=== PATIENT | male | born 1950 | race Caucasian/White ===

== ENCOUNTER 2017-01-07 13:39 | Outpatient (CLI) | payer MEDICARE, BC | END 2017-01-07 13:40 | disposition home or self-care (01) | DX: J98.11 Atelectasis (principal) ==

== ENCOUNTER 2018-01-08 08:33 | Outpatient (CLI) | payer MEDICARE, BC ==
--- NOTE | 2018-01-08 13:55 | XRAY Report ---
THREE VIEW PARANASAL SINUSES: 01/08/2018 CLINICAL INDICATION: Dental implant, sinus pain. TECHNIQUE REPORT: AP, [place] and lateral views of the paranasal sinuses demonstrate leftward deviation of the septum. No mucosal thickening or air fluid level is seen. Dental hardware is noted. IMPRESSION: LEFTWARD DEVIATION OF THE NASAL SEPTUM. NO EVIDENCE OF ACUTE OR CHRONIC SINUSITIS. TD: 01/08/2018 13:54
== END 2018-01-08 08:34 | disposition home or self-care (01) ==
LOC: DI.S 08:33
PROVIDERS: ATTEND Internal Medicine
DX: J34.2 Deviated nasal septum (principal)
CPT/HCPCS: 70220

== ENCOUNTER 2018-09-14 20:38 | Outpatient (CLI) | payer MEDICARE, BC ==
--- NOTE | 2018-09-14 21:56 | Ultrasound Report ---
Reason: VARICOSE VEINS OF R LOW EXTREM WITH OTHER COMPLICA Procedure Date: 09/14/2018 Accession Number: [id number] / [id number] Procedure: US - Duplex Ext Veins Right CPT Code: FULL RESULT: EXAM: RIGHT LOWER EXTREMITY VENOUS ULTRASOUND EXAM DATE: 09/14/2018 08:50 PM. CLINICAL HISTORY: Varicose veins. Concern for DVT. COMPARISON: None. TECHNIQUE: Real-time sonographic vascular imaging was performed by the roof technician through the lower extremity utilizing both color-flow and Doppler spectral analysis. Multiple sales support representative static images were saved for review. FINDINGS: Common Femoral Vein (CFV): Normal. CFV-GSV Junction: Normal. Profunda Femoral Vein (PFV): Normal. Femoral Vein (FV) Prox: Normal. Femoral Vein (FV) Mid: Normal. Femoral Vein (FV) Dist: Normal. Popliteal Vein: Normal. Posterior Tibial Veins: Normal. Peroneal Veins: Normal. Other: Fluid noted at the knee compatible with joint effusion, up to 6.1 cm across and 1.1 cm thick. IMPRESSION: 1. No evidence for deep venous thrombosis. 2. Joint effusion. [facility]
== END 2018-09-14 20:39 | disposition home or self-care (01) ==
LOC: DI 20:38
PROVIDERS: ATTEND Internal Medicine
DX: I83.891 Varicose veins of right lower extremity with other complications (principal); M25.461 Effusion, right knee

== ENCOUNTER 2018-10-17 16:50 | Outpatient (CLI) | payer MEDICARE, BC ==
--- NOTE | 2018-10-19 13:03 | MRI Report ---
Reason: EFFUSION,RIGHT KNEE Procedure Date: 10/17/2018 Accession Number: [id number] / [id number] Procedure: MRI - Knee RT W/O CPT Code: FULL RESULT: EXAM: RIGHT KNEE MRI WITHOUT CONTRAST EXAM DATE: 10/17/2018 06:14 PM. CLINICAL HISTORY: Effusion, right knee. COMPARISON: None. TECHNIQUE: Multiplanar, multisequence T1-weighted and fluid-sensitive sequences of the knee without contrast. Other: None. FINDINGS: Bones: Abnormal marrow edema is seen at the inferior patellar pole. There is a subtle line of low signal on T1 and T2 associated with focal region of abnormal swelling of the patellar tendon at the patellar tendon attachment to the lower pole. Series 401 image 25, series 501 image 20. Articular Cartilage: Broders grade IV chondromalacia on both sides of the medial compartment. Marginal arthrosis is also present. Lateral compartment cartilage is spared. Minimal marginal arthrosis is present. Patellofemoral joint shows only a small amount of marginal arthrosis at the inferior pole. Medial Meniscus: Medial meniscus shows a macerated tear with subluxation out of the joint, the posterior horn medial meniscus tear is near the meniscal root but does not involve this ligament. Medial meniscus is partially subluxed out of the joint. Bowing but otherwise intact normal appearing MCL medially. Series 801 image 16. Lateral Meniscus: The lateral meniscus is intact. Cruciate Ligaments: The anterior and posterior cruciate ligaments are intact. Collateral Ligaments: The medial collateral and lateral collateral ligamentous structures are intact. MCL somewhat laterally bowed. Otherwise unremarkable. Tendons: On the sagittal, there is abnormal swelling, edema and abnormal signal within the proximal patellar tendon near the patellar attachment. This is probably a small focal intrasubstance or partial-thickness tear of the central aspect. Because of this patient's history this may be related to a chronic repetitive stress-type injury with a focal tendon tear at the patellar attachment. Series 401 image 25, series 501 image 21. Semimembranosus, biceps femoris have a normal appearance. Musculature: No edema or fatty atrophy. Other: Moderate-sized joint effusion. Multilocular popliteal cyst. At least one small loose body is seen in medial aspect of the knee. Series 401 image 20, series 801 image 25. The medial and lateral retinacula are intact. Extensive subcutaneous edema and swelling is seen anteriorly over the patella. Extensive edema also seen in Hoffa's fat pad. IMPRESSION: 1. On this examination, dominant features in the anterior knee, where there is extensive subcutaneous prepatellar soft tissue swelling, a focal tear at the central aspect of the patellar tendon attachment on the inferior patella, extensive bone marrow edema, small erosion at the inferior anterior patella and edema in Hoffa's fat pad. These are all probably related to chronic repetitive stress in a patient with a history of working on his knees. 2. There is also a macerated tear of the posterior horn of the medial meniscus. This causes lateral subluxation of the meniscus out of the joint, otherwise bowing intact and normal appearing MCL medially. Please note that the meniscal root does appear to be intact. 3. Lateral meniscus, cruciates, lateral collateral ligament appear unremarkable. [facility] MUSCULOSKELETAL RADIOLOGY SECTION
== END 2018-10-17 16:51 | disposition home or self-care (01) ==
LOC: DI 16:50
PROVIDERS: ATTEND Internal Medicine
DX: S76.111A Strain of right quadriceps muscle, fascia and tendon, initial encounter (principal); S83.241A Other tear of medial meniscus, current injury, right knee, initial encounter; M85.861 Other specified disorders of bone density and structure, right lower leg

== ENCOUNTER 2020-01-25 06:41 | Outpatient (CLI) | payer MEDICARE ==
--- NOTE | 2020-01-26 05:53 | Ultrasound Report ---
Reason: AAA SCREEN Procedure Date: 01/25/2020 Accession Number: [id number] / [id number] Procedure: US - Aorta Screening CPT Code: Final Report FULL RESULT: EXAM: AORTIC DOPPLER ULTRASOUND EXAM DATE: 01/25/2020 07:24 AM CLINICAL HISTORY: AAA screen. COMPARISON: None. TECHNIQUE: Real-time sonographic imaging of retroperitoneal vascular structures, including color-flow, Doppler flow and spectral analysis was performed by the wooden boat builder. Multiple wine sales representative static images were saved for review. FINDINGS: Aorta: The abdominal aorta was adequately visualized. No evidence for abdominal aortic aneurysm. Proximal: Sagittal AP 2.8 cm. Mid: Transverse 2.2 x 2.4 cm. Distal: Transverse 1.9 x 2.2 cm. Caliber: WNL: Yes. Plaque visualized: Yes. Iliacs: Right Iliac: Transverse 1.3 x 1.5 cm. Left Iliac: Transverse 1.3 x 1.4 cm. Iliac Vessels: The visualized proximal common iliac arteries are normal in caliber. Other: None. IMPRESSION: No abdominal aortic aneurysm. [facility]
== END 2020-01-25 06:42 | disposition home or self-care (01) ==
LOC: DI 06:41
PROVIDERS: ATTEND Nurse Practitioner Family
DX: Z13.6 Encounter for screening for cardiovascular disorders (principal)
CPT/HCPCS: 76706

== ENCOUNTER 2020-02-03 11:51 | Outpatient (CLI) | payer MEDICARE ==
--- NOTE | 2020-02-03 15:49 | XRAY Report ---
Reason: PAINFUL METATARSAL 3/4 BILAT Procedure Date: 02/03/2020 Accession Number: [id number] / [id number] Procedure: XR - Foot 3 View BILAT CPT Code: Final Report FULL RESULT: EXAMS: 1. Right Foot Radiography 2. Left Foot Radiography EXAM DATE: 02/03/2020 12:12 PM. CLINICAL HISTORY: PAINFUL METATARSAL 3/4 BILAT. COMPARISON: None. TECHNIQUE: 3 views each foot. FINDINGS: Right: Bones: Normal. No fractures or bone lesions. Joints: Potential posterior talocalcaneal ankylosis. Mild narrowing of first metatarsophalangeal joint space with tiny marginal osteophytes. Soft Tissues: Prominent plantar calcaneal enthesophyte. No soft tissue swelling. Left: Bones: Normal. No fractures or bone lesions. Joints: Potential posterior talocalcaneal ankylosis. Mild narrowing of first metatarsal phalangeal joint space. Soft Tissues: Prominent plantar calcaneal enthesophyte. No soft tissue swelling. IMPRESSION: 1. Potential bilateral posterior talocalcaneal ankylosis. 2. Bilateral first metatarsophalangeal joint degenerative changes. 3. No radiographic evidence for fracture. [facility]
== END 2020-02-03 11:52 | disposition home or self-care (01) ==
LOC: DI 11:51
PROVIDERS: ATTEND Podiatrist
DX: M19.071 Primary osteoarthritis, right ankle and foot (principal); M19.072 Primary osteoarthritis, left ankle and foot; M24.675 Ankylosis, left foot; M24.674 Ankylosis, right foot

== ENCOUNTER 2024-04-29 08:00 | Outpatient (CLI) | payer MEDICARE ==
--- NOTE | 2024-04-29 10:24 | XRAY Report ---
PROCEDURE: Chest 2V INDICATIONS: WHEEZING TECHNIQUE: 2 views of the chest were acquired. COMPARISON: 01/07/2017. FINDINGS: Surgical changes and devices: None. Lungs and pleura: No pleural effusions or pneumothorax. Again seen mild right basilar atelectasis. T he lungs are otherwise clear. Mediastinum: Mediastinal contours appear normal. Heart size is normal. Bones and chest wall: No suspicious bony lesions. Overlying soft tissues appear unremarkable. IMPRESSION: No acute cardiopulmonary process. Reviewed by: Tommy Hodgson MD on 04/29/2024 9:58 AM PDT Approved by: Tommy Hodgson MD on 04/29/2024 9:58 AM PDT Station ID: [id number]
[2024-04-29 14:39] LABS: BASOPHILS % (AUTO) 0.6 %; EOSINOPHILS # (AUTO) 0.1 10^3/uL (0.0-0.7); EOSINOPHILS % (AUTO) 1.1 %; HCT - HEMATOCRIT 45.9 % (42.0-52.0); HGB - HEMOGLOBIN 15.5 g/dL (14.0-18.0); LYMPHOCYTES # (AUTO) 1.6 10^3/uL (1.5-3.5); LYMPHOCYTES % (AUTO) 24.8 %; MEAN CORPUSCULAR HEMOGLOBIN 31.7 pg (27.0-31.0); MEAN CORPUSCULAR HGB CONC 33.8 g/dL (32.0-36.0); MEAN CORPUSCULAR VOLUME 93.9 fL (80.0-94.0); MONOCYTES # (AUTO) 0.8 10^3/uL (0.0-1.0); MONOCYTES % (AUTO) 12.3 %; NEUTROPHILS # (AUTO) 3.8 10^3/uL (1.5-6.6); PLT - PLATELET COUNT 307 10^3/uL (130-450); RED BLOOD COUNT 4.89 10^6/uL (4.70-6.10); RED CELL DISTRIBUTION WIDTH 12.9 % (12.0-15.0); WHITE BLOOD COUNT 6.3 x10^3/uL (4.8-10.8)
[2024-04-29 15:23] LABS: ALBUMIN 4.1 g/dL (3.2-5.5); ALBUMIN/GLOBULIN RATIO 1.6 (1.0-2.2); BILIRUBIN,TOTAL 1.3 mg/dL (0.2-1.0); CALCIUM 9.4 mg/dL (8.5-10.3); CREATININE 0.9 mg/dL (0.6-1.3); TOTAL PROTEIN 6.7 g/dL (6.4-8.9)
== END 2024-04-29 23:59 | disposition home or self-care (01) ==
LOC: DI.S 08:00
PROVIDERS: ATTEND Nurse Practitioner
DX: R06.2 Wheezing (principal)
CPT/HCPCS: 36415; 80053; 83880; 85025

== ENCOUNTER 2024-06-21 07:48 | Outpatient (CLI) | payer MEDICARE ==
--- NOTE | 2024-06-21 22:08 | XRAY Report ---
PROCEDURE: Shoulder 2+V LT INDICATIONS: PAIN OF LEFT SHOULDER JOINT TECHNIQUE: 3 views of the shoulder were acquired. COMPARISON: None. FINDINGS: Bones: No fractures or dislocations. Moderate acromioclavicular joint osteoarthritis and severe gle nohumeral joint osteoarthritis. No suspicious bony lesions. Visualized ribs appear intact. Soft tissues: No suspicious soft tissue calcifications. The visualized lungs are within normal limi ts. IMPRESSION: No acute left shoulder fracture or dislocation. 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 No gross soft tissue abnormalities. Reviewed by: Dave Sow MD on 06/21/2024 10:07 PM PDT Approved by: Dave Sow MD on 06/21/2024 10:07 PM PDT Station ID: [id number]
== END 2024-06-21 07:49 | disposition home or self-care (01) ==
LOC: DI.S 07:48
PROVIDERS: ATTEND Nurse Practitioner Family
DX: M19.012 Primary osteoarthritis, left shoulder (principal)

== ENCOUNTER 2024-07-27 07:45 | Outpatient (CLI) | payer MEDICARE ==
--- NOTE | 2024-07-27 08:21 | CARDIAC PROCEDURE NOTE ---
Stress Test Report Service Date: 07/27/24 Service Time: 08:00 Ordering Provider: Courtney Taylor NP Indication for Test: Assess persistent exertional dyspnea following non-Covid URI. Significant Medical History: Evan is referred for evaluation of persistent exertional dyspnea after a severe non-Covid URI this past spring. He has found himself limited on walks in his community that he used to be able to do without limitation. He reports an associated upper chest tightness and limitation to breathing deeply, that is not uncomfortable nor painful. He has to go slower on hills and stop occasionally to catch his breath. He reports a history of asthma in childhood and has noted some wheezing, for which albuterol seems to help modestly. He denies shortness of breath at rest, nocturnal dyspnea and peripheral edema. He has also been under care for intermittent dysphagia in the setting of longstanding GERD and he reports that esophageal stricture dilation recently has helped these symptoms. Cardiac Risk Factors: Positive for family history of CAD (brother with premature in his 40's attributed to MN, father with fatal MN in late 70's), and hyperlipidemia (treated with atorvastatin for ~2 yrs for cholesterol level 216 per his recollection); negative for hypertension, diabetes and recent tobacco smoking history (quit 40 yrs ago). Type of Stress Test: ETT with Echocardiography Procedure: -Exercise Treadmill Test- After signing informed consent, the patient underwent echo imaging at rest and then performed treadmill exercise using a Brian protocol. The patient exercised for 8 minutes 51 seconds and achieved a peak heart rate of 138 (94 percent predicted maximum heart rate for age), and an estimated workload of 10.2 METS. The test was terminated due to fatigue/shortness of breath. Resting heart rate: 66 Peak heart rate: 138 Normal response to exercise. Resting BP: 148/88 Peak BP: 218/89 Mildly hypertensive at rest with borderline hypertensive BP response to exercise. Room air oxygen saturation during exercise ranged between 93-96% Rhythm during exercise: Sinus rhythm throughout with rare isolated PVCs; 6 tabulated by computer analysis. Symptoms: He reported feeling the same dyspnea and upper chest tightness that he experiences while exercising in the community, but denied any chest pressure/discomfort/pain. EKG at rest showed normal sinus rhythm, with borderline low precordial QRS voltages, possible left atrial abnormality and mild resting ST elevation, likely due to normal variant early repolarization. EKG at peak stress showed J-point depression with upsloping ST segments, NOT meeting EKG diagnostic criteria for ischemia. In Recovery HR decreased normally, with slower decrease in blood pressures to near resting levels (HR 86, BP 168/89 at 7 minutes). Echo imaging, performed at rest and with stress, will be reported separately. Jamari Gleason MD, was present throughout this treadmill stress study and s upervised it in its entirety. Summary: 1) Exercise tolerance was well above average, as evidenced by KENNY of -38% (compared to a normal 70 yr old man). 2) Normal resting EKG. 3) Adequate level of exercise was achieved on this treadmill stress test. 4) Borderline abnormal hypertensive BP response to exercise. 5) No ischemic changes by EKG criteria were seen at peak stress. 6) Echo image interpretation reveals normal left ventricular size, wall thickness and systolic function, with appropriate hyperdynamic augmentation of all segments with exercise, indicating no evidence of prior infarct or inducible ischemia. Although mild resting aortic insufficiency was observed, there was no significant structural valvular abnormality detected, nor elevation of estimated pulmonary artery systolic pressure seen on screening study. See separate report for more details. Conclusions and Recommendations: 1) These are reassuring treadmill stress echocardiogram results, with exercise time well above average for age, vigorous hemodynamic responses and no evidence of inducible ischemia by EKG or echo analysis. 2) He did experience symptoms similar to those reported while walking in his neighborhood and his dyspnea was evident on observation, though there was no manifest wheezing. Given his history of childhood asthma and the potential for post-infectious bronchospasm it would be very reasonable for him to undergo formal Pulmonary Function Testing, at rest and with bronchodilator administration, as this might point to the benefit of long-acting bronchodilator therapy to improve his comfort level while exercising.
== END 2024-07-27 07:46 | disposition home or self-care (01) ==
LOC: DI 07:45
PROVIDERS: ATTEND Nurse Practitioner Family
DX: R06.09 Other forms of dyspnea (principal); E78.5 Hyperlipidemia, unspecified; Z82.49 Family history of ischemic heart disease and other diseases of the circulatory system; Z87.891 Personal history of nicotine dependence
CPT/HCPCS: 93350